=== PATIENT | male | born 1945 | race Caucasian/White ===

== ENCOUNTER → 2020-09-23 | Outpatient (CLI) | payer OTHER ==
--- NOTE | 2020-09-23 10:51 | US ---
EXAMINATION TYPE: US duplex aorta DATE OF EXAM: 09/23/2020 COMPARISON: NONE CLINICAL HISTORY: I71.4 Abdominal aortic aneurysm, without rupture. EXAM MEASUREMENTS: Abdominal Aorta: Proximal: 2.3 x 2.4cm Mid: 2.1 x 2.0cm Distal: 1.8 x 1.9cm Right Iliac: 1.0 x 0.9cm Left Iliac: 0.9 x 1.1cm Extensive atherosclerotic irregularity of the abdominal aorta IMPRESSION: 1. No evidence of abdominal aortic aneurysm. 2. Atherosclerotic irregularity of the abdominal aorta.
== END | disposition home or self-care (01) ==
LOC: RADUSWWP 07:19
DX: I71.4 Abdominal aortic aneurysm, without rupture (principal)
CPT/HCPCS: 93979